=== PATIENT | female | born 1975 | race African-American/Black ===

== ENCOUNTER 2021-09-23 23:56 | Emergency (ER) | payer OTHER ==
[~2021-09-23] VITALS: Ht 170.2 cm; Wt 127.0 kg
[2021-09-23 23:56] VITALS: BP 142/87
== END 2021-09-24 03:29 | disposition left against medical advice (07) ==
LOC: ER 09-24 00:06
DX: S81.812A Laceration without foreign body, left lower leg, initial encounter (principal); Z53.21 Procedure and treatment not carried out due to patient leaving prior to being seen by health care provider; W25.XXXA Contact with sharp glass, initial encounter; Y93.89 Activity, other specified; Y92.89 Other specified places as the place of occurrence of the external cause; Y99.8 Other external cause status

== ENCOUNTER 2023-01-16 18:39 | Emergency (ER) | payer MEDICAID, OTHER ==
[~2023-01-16] VITALS: Ht 170.2 cm; Wt 118.1 kg
[2023-01-16] MEDS ORDERED: ALBUTEROL SULF 2.5 MG/0.5ML(0.5%) NEB SOLN HHN ONE (18:45)
[2023-01-16] MEDS ORDERED: IPRATROPIUM BROM 0.5 MG/2.5ML INH SOL HHN ONE (18:45)
[2023-01-16] MEDS ORDERED: IPRATROPIUM BROM 0.5 MG/2.5ML INH SOL ONE (18:56)
[2023-01-16] MEDS ORDERED: ALBUTEROL SULF 2.5 MG/0.5ML(0.5%) NEB SOLN ONE (18:56)
[2023-01-16 19:19] LABS: Basophils # (auto) 0.1 10 ^3/uL (0-0.2); Monocytes # (auto) 0.6 10 ^3/uL (0-1.3); Nucleated Red Blood Cells % 0.1 %; Red Blood Cells 4.79 10^6/uL (4.0-5.20); Red Cell Distribution Width 18.9 % (11.8-14.3)
[2023-01-16 19:20] LABS: Eosinophils # (auto) 0.2 10 ^3/uL (0-0.8); Eosinophils % (auto) 2.2 % (0.0-7.0); Hematocrit 34.6 % (36.0-46.0); Hemoglobin 10.1 g/dL (12.2-16.2); Lymphocytes # (auto) 1.6 10 ^3/uL (0.4-5.4); Lymphocytes % (auto) 19.6 % (10.0-50.0); Mean Corpuscular Hgb Conc. 29.1 g/dL (32.0-36.0); Mean Corpuscular Volume 72.4 fL (80.0-100.0); Monocytes % (auto) 6.7 % (0.0-12.0); Neutrophils # (auto) 5.8 10 ^3/uL (1.6-8.6); Neutrophils % (auto) 70.5 % (37.0-80.0); White Blood Cell 8.3 10^3/uL (4.4-10.8)
[2023-01-16 19:30] VITALS: PULSE 92; RESP 18; O2SAT 99
[2023-01-16 19:35] LABS: Albumin 3.1 g/dL (3.4-5.0); Calcium 8.5 mg/dL (8.5-10.1); Potassium 3.6 mmol/L (3.5-5.1)
[2023-01-16] MEDS ORDERED: DexAMETHasone SOD PHOS 10MG/1ML VIAL INJ IV ONE (19:45)
[2023-01-16 19:50] LABS: BUN/Creatinine Ratio 11.1 (10.0-20.0); Bilirubin, Total 0.8 mg/dL (0.2-1.0); Total Protein 7.4 g/dL (6.4-8.2)
[2023-01-16 21:17] LABS: COVID19 ANTIGEN SOFIA FIA NEGATIVE (NEGATIVE)
[2023-01-16 21:24] LABS: Urine Bacteria NONE SEEN /hpf (None Seen); Urine Blood Negative /uL (Negative); Urine Clarity Clear (Clear); Urine Color Yellow (Yellow); Urine Protein, UAD TRACE (Negative); Urine Specific Gravity 1.022 (1.001-1.035); Urine WBC 1 /hpf (0 - 5)
[2023-01-17 01:14] VITALS: BP 152/86; PULSE 104; RESP 19; TEMP 99.3; O2SAT 96
== END 2023-01-17 01:55 | disposition short-term general hospital (02) ==
LOC: EDBD 18:39 → ER 18:39
DX: J45.902 Unspecified asthma with status asthmaticus (principal); F17.210 Nicotine dependence, cigarettes, uncomplicated; Z98.890 Other specified postprocedural states; Z20.822 Contact with and (suspected) exposure to COVID-19
CPT/HCPCS: 36415; 71045; 80053; 81001; 83880; 85025; 87426; 93005; 94640; 96374; 99291; J1100; J7644

== ENCOUNTER 2024-11-30 00:45 | Inpatient (IN) | payer MEDICAID ==
[~2024-11-30] VITALS: Ht 170.2 cm; Wt 148.6 kg
[2024-11-30 01:33] LABS: Hematocrit 35.8 % (36.0-46.0); Hemoglobin 10.9 g/dL (12.2-16.2); Mean Corpuscular Hemoglobin 20.6 pg (28.0-32.0); Mean Corpuscular Volume 67.8 fL (80.0-100.0); Nucleated Red Blood Cells % 0.1 %
[2024-11-30 01:40] LABS: Potassium 3.7 mmol/L (3.5-5.1); Sodium 142 mmol/L (136-145)
[2024-11-30 01:41] LABS: Anion Gap 13 (5-15); Calcium 8.8 mg/dL (8.7-10.4); Carbon Dioxide 21 mmol/L (20-31)
--- NOTE | 2024-11-30 01:41 | ED.PDOC ---
GI ASSESSMENT HPI Comments 49 year old female with a history of kidney stones brought in by son complaining of left lower quadrant abdominal pain radiating to left flank since yesterday. Patient states she has been having abdominal pain since yesterday, sharp, stabbing, intermittent left lower quadrant abdominal pain radiating to her left flank and back, associated with nausea and vomiting, She denies any fever, diarrhea, constipation, dysuria or hematuria. 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 History Family History Family History: Reviewed,noncontributory to illness, Family hx of heart marjorie Social History Smoker: Cigarettes Alcohol: Occasionally Drugs: Denies Drug Use Lives In: Home Constitutional: denies: chills, diaphoresis, fatigue, fever, malaise, sweats, weakness, others EENTM: denies: blurred vision, double vision, ear bleeding, ear discharge, ear drainage, ear pain, ear ringing, eye pain, eye redness, hearing loss, mouth pain, mouth swelling, nasal discharge, nose bleeding, nose congestion, nose pain, photophobia, tearing, throat pain, throat swelling, voice changes, others Respiratory: denies: cough, hemoptysis, orthopnea, SOB at rest, shortness of breath, SOB with excertion, stridor, wheezing, others Cardiovascular: denies: chest pain, dizzy spells, diaphoresis, Dyspnea on exertion, edema, irregular heart beat, left arm pain, lightheadedness, palpitations, PND, syncope, others Gastrointestinal: reports: abdominal pain (LLQ), nausea, vomiting; denies: abdomen distended, blood streaked bowels, constipated, diarrhea, dysphagia, difficulty swallowing, hematemesis, melena, poor appetite, poor fluid intake, rectal bleeding, rectal pain, others Genitourinary: denies: abnormal vagina bleeding, burning, dyspareunia, dysuria, flank pain, frequency, hematuria, incontinence, pain, , vagina discharge, urgency, others Neurological: denies: dizziness, fainting, headache, left sided numbness, left sided weakness, numbness, paresthesia, pre-existing deficit, right sided numbness, right sided weakness, seizure, speech problems, tingling, tremors, weakness, others Musculoskeletal: reports: back pain; denies: gout, joint pain, joint swelling, muscle pain, muscle stiffness, neck pain, others Integumetry: denies: bruises, change in color, change in hair/nails, dryness, laceration, lesions, lumps, rash, wounds, others Allergic/Immunocompromised: denies: Difficulty Healing, Frequent Infections, Hives, Itching, others Hematologic/Lymphatic: denies: anemia, blood clots, easy bleeding, easy bruising, swollen glands, others Endocrine: denies: excessive hunger, excessive sweating, excessive thirst, excessive urination, flushing, intolerance to cold, intolerance to heat, unexplained weight gain, unexplained weight loss, others Psychiatric: denies: anxiety, bipolar disorder, depression, hopeless, panic disorder, schizophrenia, sleepless, suicidal, others Physical Exam General Appearance: Mild Distress, Obese HEENT: Other (Pupils and face symmetric. Moist mucous membranes.) Neck: Full Range of Motion, Normal Inspection Respiratory: Lungs Clear, No Accessory Muscle Use, No Respiratory Distress, Normal Breath Sounds Cardiovascular: No Edema, No JVD, Regular Rate/Rhythm Breast Exam: Deferred Gastrointestinal: LLQ, Soft, Tenderness (Left flank and left lower quadrant tenderness to palpation) Genitalia: Deferred Pelvic: Deferred Rectal: Deferred Extremities: Normal inspection, Normal range of motion, Non-tender, No pedal edema Neurologic: Alert (Oriented x4), Normal Affect, Normal Mood, Other (Ambulatory) Cerebellar Function: NOT DONE Reflexes: NOT DONE Skin: Dry, Normal Color, Warm Lymphatic: NOT DONE Was a procedure done? Was a procedure done?: No GI differential Dx Differential Diagnosis: Constipation, Diverticular disease, Ectopic , Gastritis/PUD, Gastroenteritis, Hernia, UTI, Urolithiasis, Dehydration, Electrolyte Imbalance, Food Poisoning, Bacterial, Viral, Hypovolemia, Ischemic Bowel, Stress Ulcer, Kidney Stone X-Ray, Labs, Meds, VS Vital Signs Date Time Temp Pulse Resp B/P (MAP) Pulse Ox O2 Delivery O2 Flow Rate FiO2 11/30/24 01:24 98.7 101 20 127/80 (96) 98 98.7 Lab Test 11/30/24 01:23 Range/Units White Blood Count 10.4 4.4-10.8 10^3/uL Red Blood Count 5.28 H 4.0-5.20 10^6/uL Hemoglobin 10.9 L 12.2-16.2 g/dL Hematocrit 35.8 L 36.0-46.0 % Mean Corpuscular Volume 67.8 L 80.0-100.0 fL Mean Corpuscular Hemoglobin 20.6 L 28.0-32.0 pg Mean Corpuscular Hemoglobin Concent 30.4 L 32.0-36.0 g/dL Red Cell Distribution Width 19.1 H 11.8-14.3 % Platelet Count 305 140-450 10^3/uL Mean Platelet Volume 7.3 6.9-10.8 fL Neutrophils (%) (Auto) 80.5 H 37.0-80.0 % Lymphocytes (%) (Auto) 11.6 10.0-50.0 % Monocytes (%) (Auto) 6.8 0.0-12.0 % Eosinophils (%) (Auto) 0.0 0.0-7.0 % Basophils (%) (Auto) 1.1 0.0-2.0 % Neutrophils # (Auto) 8.4 1.6-8.6 10 ^3/uL Lymphocytes # (Auto) 1.2 0.4-5.4 10 ^3/uL Monocytes # (Auto) 0.7 0-1.3 10 ^3/uL Eosinophils # (Auto) 0 0-0.8 10 ^3/uL Basophils # (Auto) 0.1 0-0.2 10 ^3/uL Nucleated Red Blood Cells 0.1 % Platelet Estimate [place] Large Platelets Few Hypochromasia (manual) Moderate Microcytosis Moderate Sodium Level 142 136-145 mmol/L Potassium Level 3.7 3.5-5.1 mmol/L Chloride Level 108 H 98-107 mmol/L Carbon Dioxide Level 21 20-31 mmol/L Anion Gap 13 5-15 Blood Urea Nitrogen 5 L 9-23 mg/dL Creatinine 0.88 0.550-1.02 mg/dL Glomerular Filtration Rate Calc 82 >90 mL/min BUN/Creatinine Ratio 5.7 L 10.0-20.0 Serum Glucose 90 74-106 mg/dL Calcium Level 8.8 8.7-10.4 mg/dL [facility] [id number] [place] [id number] Ph: [phone] DIAGNOSTIC IMAGING Diagnostic Imaging Report : [id number] Signed PATIENT: MARIAMA DILLON ACCT: [id number] UNIT: [id number] : 1975 LOC: ER ROOM / BED: / AGE / SEX: 49 / F ADM STATUS: REG ER SERVICE 1 ORDERING PHYSICIAN: LEI NEELY MD PROCEDURE(s): ABPL - CT AB PEL WO CON-NO ORAL OR IV REASON: llq pain rad to l flank ORDER NUMBER(s): [id number], ACCESSION NUMBER(s): [id number] Exam: CT CT AB PEL WO CON-NO ORAL OR IV History: llq pain rad to l flank Comparison Study: None Technique: Multidetector spiral CT of the abdomen was performed from lung bases to pubic symphysis. Imaging was performed without IV contrast. Axial, coronal and sagittal multiplanar reformats were obtained from the axial data set by the technologist. Radiation Dose : 1. Abdomen/Pelvis: CTDIvol 25.56 mGy, DLP 1556.06 mGy*cm. Findings: Evaluation of solid organs is limited due to lack of intravenous contrast use. Lung Bases: No acute or significant lung base finding. Normal heart size. No pleural or pericardial effusion. Liver: The liver is normal in size. No focal lesions. Gallbladder and Biliary Tree: Unremarkable Spleen: Unremarkable Pancreas: The pancreas is grossly normal in appearance. Adrenal Glands: Unremarkable Kidneys: Mild left hydronephrosis secondary to a partially obstructing proximal ureteral calculus measuring 6 mm. The right kidney is grossly normal without calculi or hydronephrosis. Bladder: Grossly unremarkable for degree of distention. Bowel: The stomach is grossly normal in appearance. Small bowel and colon are normal in caliber and distribution. The appendix is normal. Ascites: Absent Lymphadenopathy: No mesenteric, retroperitoneal or periportal lymphadenopathy. Abdominal Wall and Mesentery: Small fat containing umbilical hernia. Vasculature: The visualized abdominal aorta is normal in size and caliber. Evaluation of abdominal and pelvic vessels is limited due to lack of intravenous contrast. Pelvic Organs: The uterus is moderately enlarged and lobulated in its morphology, consistent with leiomyomatous change. Musculoskeletal: No aggressive focal bony lesions, acute fractures or dislocation. IMPRESSION: 1. Mild left hydronephrosis secondary to a partially obstructing proximal ureteral calculus. 2. Probable leiomyomatous uterus. Radiation optimization: All CT scans at this facility use at least one of these dose optimization techniques: automated exposure control mA and/or kV adjustment per patient size (includes targeted exams where dose is matched to clinical indication) or iterative reconstruction. ATED BY: DINH SCHMITZ MD DICTATED DATE/TIME: 11/30/24239 SIGNED BY: DINH SCHMITZ MD SIGNED DATE/TIME: 11/30/24239 X-Ray, Labs, Meds, VS Comment 49-year-old female with a history of asthma and kidney stones complaining of left lower quadrant pain radiating to the left flank and back Vitals remarkable for heart rate 101 Exam remarkable for left lower quadrant and left flank tenderness to palpation Rhythm strip independently interpreted by me: Sinus tach, rate 101, no ectopy. CT abdomen and pelvis IMPRESSION: 1. Mild left hydronephrosis secondary to a partially obstructing proximal ureteral calculus. 2. Probable leiomyomatous uterus. CBC and basic metabolic panel unremarkable, UA pending Patient treated with the following in the ED: 1 L 0.9 normal saline IV bolus, Toradol 30 mg IV, Zofran 4 mg IV, magnesium rider 2 g IV On re-evaluation, patient states pain has improved, but is still present.. Vitals are stable. Plan is to admit the patient for pain control and Urology evaluation. Time of 1ST Reevaluation: 01:34 Reevaluation 1ST: Unchanged Patient Education/Counseling: Diagnosis, Treatment Family Education/Counseling: Diagnosis, Treatment SEPSIS Sepsis Screen Physician Orders Urinalysis (11/30/24 01:12) Ct Ab Pel Wo Con-No Oral Or Iv (11/30/24 01:12) Test, Urine (11/30/24 01:12) Magnesium Sulfate 1gm/100ml (11/30/24 02:45) Vital Signs Date Time Temp Pulse Resp B/P (MAP) Pulse Ox O2 Delivery O2 Flow Rate FiO2 11/30/24 01:24 98.7 101 20 127/80 (96) 98 98.7 Laboratory Tests Test 11/30/24 01:23 White Blood Count 10.4 10^3/uL (4.4-10.8) Departure 1 Departure Time of Disposition: 02:50 Impression: Primary Impression: Hydronephrosis concurrent with and due to calculi of kidney and ureter Disposition: ADMITTED INPATIENT Admit to: Med Surg Condition: Guarded Additional Instructions: Your blood tests were unremarkable. Your CT scan showed a kidney stone on the left side. Please see the report below. I have prescribed pain medication and medication for nausea. Follow-up with your primary doctor in 1-2 days for referral to an urologist for further evaluation of your kidney stone. [place] [address] Ph: [phone] DIAGNOSTIC IMAGING Diagnostic Imaging Report : [id number] Signed PATIENT: MARIAMA DILLON ACCT: [id number] UNIT: [id number] : 1975 LOC: ER ROOM / BED: / AGE / SEX: 49 / F ADM STATUS: REG ER SERVICE 011 ORDERING PHYSICIAN: LEI NEELY MD PROCEDURE(s): ABPL - CT AB PEL WO CON-NO ORAL OR IV REASON: llq pain rad to l flank ORDER NUMBER(s): [id number], ACCESSION NUMBER(s): [id number] Exam: CT CT AB PEL WO CON-NO ORAL OR IV History: llq pain rad to l flank Comparison Study: None Technique: Multidetector spiral CT of the abdomen was performed from lung bases to pubic symphysis. Imaging was performed without IV contrast. Axial, coronal and sagittal multiplanar reformats were obtained from the axial data set by the technologist. Radiation Dose : 1. Abdomen/Pelvis: CTDIvol 25.56 mGy, DLP 1556.06 mGy*cm. Findings: Evaluation of solid organs is limited due to lack of intravenous contrast use. Lung Bases: No acute or significant lung base finding. Normal heart size. No pleural or pericardial effusion. Liver: The liver is normal in size. No focal lesions. Gallbladder and Biliary Tree: Unremarkable Spleen: Unremarkable Pancreas: The pancreas is grossly normal in appearance. Adrenal Glands: Unremarkable Kidneys: Mild left hydronephrosis secondary to a partially obstructing proximal ureteral calculus measuring 6 mm. The right kidney is grossly normal without calculi or hydronephrosis. Bladder: Grossly unremarkable for degree of distention. Bowel: The stomach is grossly normal in appearance. Small bowel and colon are normal in caliber and distribution. The appendix is normal. Ascites: Absent Lymphadenopathy: No mesenteric, retroperitoneal or periportal lymphadenopathy. Abdominal Wall and Mesentery: Small fat containing umbilical hernia. Vasculature: The visualized abdominal aorta is normal in size and caliber. Evaluation of abdominal and pelvic vessels is limited due to lack of intravenous contrast. Pelvic Organs: The uterus is moderately enlarged and lobulated in its morphology, consistent with leiomyomatous change. Musculoskeletal: No aggressive focal bony lesions, acute fractures or dislocation. IMPRESSION: 1. Mild left hydronephrosis secondary to a partially obstructing proximal ureteral calculus. 2. Probable leiomyomatous uterus. Radiation optimization: All CT scans at this facility use at least one of these dose optimization techniques: automated exposure control mA and/or kV adjustment per patient size (includes targeted exams where dose is matched to clinical indication) or iterative reconstruction. ATED BY: DINH SCHMITZ MD DICTATED DATE/TIME: 11/30/24239 SIGNED BY: DINH SCHMITZ MD SIGNED DATE/TIME: 11/30/24239 Critical Care Note Critical Care Time?: No Stability Stability form required: No Heart Score Heart Score: Heart Score Response (Comments) Value History N/A 0 EKG N/A 0 Age N/A 0 Risk Factors N/A 0 Troponin N/A 0 Total 0 I personally scribed for LEI NEELY MD ([email or web address]) on 11/30/24 at 01:41. Electronically submitted by Yahir Cheung ([facility] I personally scribed for LEI NEELY MD ([email or web address]) on 11/30/24 at 02:53. Electronically submitted by Yahir Cheung ([facility]). LEI NEELY MD Nov 30, 2024 01:41
[2024-11-30 01:46] LABS: BUN/Creatinine Ratio 5.7 (10.0-20.0); Glucose 90 mg/dL (74-106)
[2024-11-30 02:08] LABS: Blood Urea Nitrogen 5 mg/dL (9-23); Chloride 108 mmol/L (98-107)
--- NOTE | 2024-11-30 02:43 | DVH ---
Exam: CT CT AB PEL WO CON-NO ORAL OR IV History: llq pain rad to l flank Comparison Study: None Technique: Multidetector spiral CT of the abdomen was performed from lung bases to pubic symphysis. I maging was performed without IV contrast. Axial, coronal and sagittal multiplanar reformats were obta ined from the axial data set by the technologist. Radiation Dose : 1. Abdomen/Pelvis: CTDIvol 25.56 mGy, DLP 1556.06 mGy*cm. Findings: Evaluation of solid organs is limited due to lack of intravenous contrast use. Lung Bases: No acute or significant lung base finding. Normal heart size. No pleural or pericardial effusion. Liver: The liver is normal in size. No focal lesions. Gallbladder and Biliary Tree: Unremarkable Spleen: Unremarkable Pancreas: The pancreas is grossly normal in appearance. Adrenal Glands: Unremarkable Kidneys: Mild left hydronephrosis secondary to a partially obstructing proximal ureteral calculus john suring 6 mm. The right kidney is grossly normal without calculi or hydronephrosis. Bladder: Grossly unremarkable for degree of distention. Bowel: The stomach is grossly normal in appearance. Small bowel and colon are normal in caliber and d istribution. The appendix is normal. Ascites: Absent Lymphadenopathy: No mesenteric, retroperitoneal or periportal lymphadenopathy. Abdominal Wall and Mesentery: Small fat containing umbilical hernia. Vasculature: The visualized abdominal aorta is normal in size and caliber. Evaluation of abdominal a nd pelvic vessels is limited due to lack of intravenous contrast. Pelvic Organs: The uterus is moderately enlarged and lobulated in its morphology, consistent with lei omyomatous change. Musculoskeletal: No aggressive focal bony lesions, acute fractures or dislocation. IMPRESSION: 1. Mild left hydronephrosis secondary to a partially obstructing proximal ureteral calculus. 2. Probable leiomyomatous uterus. Radiation optimization: All CT scans at this facility use at least one of these dose optimization rhiannon hniques: automated exposure control mA and/or kV adjustment per patient size (includes targeted exam s where dose is matched to clinical indication) or iterative reconstruction.
[2024-11-30] MEDS: SODIUM CHLORIDE 0.9% 1,000 ML IV ONE (03:16)
[2024-11-30] MEDS: PANTOPRAZOLE 40 MG/10 ML VIAL INJ IV ONE (03:22)
[2024-11-30] MEDS: ONDANSETRON HCL 4 MG/2 ML VIAL IV ONE ×2 (03:22→06:54)
[2024-11-30] MEDS: KETOROLAC TROMETH 30 MG/ML 1ML VIAL IV ONE (03:22)
[2024-11-30] MEDS: MAGNESIUM SULFATE 1GM/100ML 100 ML IV SCH (03:22)
[2024-11-30] MEDS: MORPHINE SULFATE INJ 2 MG/ml SYRG IV ONE (06:53)
[2024-11-30 07:00] LABS: Urine Protein, UAD TRACE (Negative)
--- NOTE | 2024-11-30 08:16 | DVHHP2 ---
History of Present Illness Reason for Visit: Flank pain History of Present Illness 49-year-old female with past medical history of asthma, nephrolithiasis, obesity, and tobacco use, presents to the ED with a chief complaint of left lower quadrant abdominal pain radiating to the left lower flank in across the right lower back, starting yesterday. The pain described as sharp, stabbing, and intermittent rated 7/10, and is associated with nausea and vomiting. She reports similar symptoms in the past, previously diagnosed with kidney stones. Past Medical History As stated in HPI Past Surgical History , tubal ligation Family History Reviewed, non-contributory to the management of this case. Past Social History Admits to tobacco use Denies illicit drug abuse Denies EtOH abuse Review of Systems Constitutional: Yes: Malaise Gastrointestinal: Nausea, Vomiting, Abdominal Pain Genitourinary: Other (Positive for flank and abdominal pain, denies hematuria) Allergies: Coded Allergies: NO KNOWN ALLERGIES (Unverified , 01/16/23) Exam Vital Signs Vital Signs Date Time Temp Pulse Resp B/P (MAP) Pulse Ox O2 Delivery O2 Flow Rate FiO2 11/30/24 06:53 80 18 112/63 11/30/24 01:24 98.7 98 98.7 General Appearance: Alert, Oriented X3, Cooperative, mild distress HEENT: Atraumatic, PERRLA Respiratory: Clear to auscultation, Normal air movement Cardiovascular: Regular rate, Normal S1, Normal S2 Abdominal: Normal bowel sounds, Soft, Other (Soft, mild tenderness to palpation in left lower quadrant and left flank, no rebound or guarding, bowel sounds present.) Extremities: No clubbing, No cyanosis, No edema, Normal pulses Skin: No rashes, No breakdown, No significant lesion Neuro: Normal gait, Normal speech, Strength at 5/5 X4 ext, Normal tone Psych/Mental Status: Mental status NL Labs/Xrays Labs Test 11/30/24 06:00 11/30/24 01:23 Range/Units Urine Color Yellow Yellow Urine Clarity Cloudy H Clear Urine pH 5.5 5.0-9.0 Urine Specific [place] 1.022 1.001-1.035 Urine Protein Trace H Negative Urine Ketones Negative Negative Urine Blood 2+ H Negative /uL Urine Nitrite 2+ H Negative Urine Bilirubin Negative Negative Urine Urobilinogen Normal Negative mg/dL Urine Leukocyte Esterase 1+ Negative /uL Urine RBC 62 0 - 4 /hpf Urine Microscopic WBC 23 H 0-5 /HPF Urine Squamous Epithelial Cells Few <5 /hpf Urine Bacteria Few H None Seen /hpf Urine Mucus Few None Seen Urine Glucose Normal Normal mg/dL Urine Test Negative Negative White Blood Count 10.4 4.4-10.8 10^3/uL Red Blood Count 5.28 H 4.0-5.20 10^6/uL Hemoglobin 10.9 L 12.2-16.2 g/dL Hematocrit 35.8 L 36.0-46.0 % Mean Corpuscular Volume 67.8 L 80.0-100.0 fL Mean Corpuscular Hemoglobin 20.6 L 28.0-32.0 pg Mean Corpuscular Hemoglobin Concent 30.4 L 32.0-36.0 g/dL Red Cell Distribution Width 19.1 H 11.8-14.3 % Platelet Count 305 140-450 10^3/uL Mean Platelet Volume 7.3 6.9-10.8 fL Neutrophils (%) (Auto) 80.5 H 37.0-80.0 % Lymphocytes (%) (Auto) 11.6 10.0-50.0 % Monocytes (%) (Auto) 6.8 0.0-12.0 % Eosinophils (%) (Auto) 0.0 0.0-7.0 % Basophils (%) (Auto) 1.1 0.0-2.0 % Neutrophils # (Auto) 8.4 1.6-8.6 10 ^3/uL Lymphocytes # (Auto) 1.2 0.4-5.4 10 ^3/uL Monocytes # (Auto) 0.7 0-1.3 10 ^3/uL Eosinophils # (Auto) 0 0-0.8 10 ^3/uL Basophils # (Auto) 0.1 0-0.2 10 ^3/uL Nucleated Red Blood Cells 0.1 % Platelet Estimate [place] Large Platelets Few Hypochromasia (manual) Moderate Microcytosis Moderate Sodium Level 142 136-145 mmol/L Potassium Level 3.7 3.5-5.1 mmol/L Chloride Level 108 H 98-107 mmol/L Carbon Dioxide Level 21 20-31 mmol/L Anion Gap 13 5-15 Blood Urea Nitrogen 5 L 9-23 mg/dL Creatinine 0.88 0.550-1.02 mg/dL Glomerular Filtration Rate Calc 82 >90 mL/min BUN/Creatinine Ratio 5.7 L 10.0-20.0 Serum Glucose 90 74-106 mg/dL Calcium Level 8.8 8.7-10.4 mg/dL PROCEDURE(s): ABPL - CT AB PEL WO CON-NO ORAL OR IV REASON: llq pain rad to l flank ORDER NUMBER(s): [id number], ACCESSION NUMBER(s): [id number] Exam: CT CT AB PEL WO CON-NO ORAL OR IV History: llq pain rad to l flank Comparison Study: None Technique: Multidetector spiral CT of the abdomen was performed from lung bases to pubic symphysis. Imaging was performed without IV contrast. Axial, coronal and sagittal multiplanar reformats were obtained from the axial data set by the technologist. Radiation Dose : 1. Abdomen/Pelvis: CTDIvol 25.56 mGy, DLP 1556.06 mGy*cm. Findings: Evaluation of solid organs is limited due to lack of intravenous contrast use. Lung Bases: No acute or significant lung base finding. Normal heart size. No pleural or pericardial effusion. Liver: The liver is normal in size. No focal lesions. Gallbladder and Biliary Tree: Unremarkable Spleen: Unremarkable Pancreas: The pancreas is grossly normal in appearance. Adrenal Glands: Unremarkable Kidneys: Mild left hydronephrosis secondary to a partially obstructing proximal ureteral calculus measuring 6 mm. The right kidney is grossly normal without calculi or hydronephrosis. Bladder: Grossly unremarkable for degree of distention. Bowel: The stomach is grossly normal in appearance. Small bowel and colon are n ormal in caliber and distribution. The appendix is normal. Ascites: Absent Lymphadenopathy: No mesenteric, retroperitoneal or periportal lymphadenopathy. Abdominal Wall and Mesentery: Small fat containing umbilical hernia. Vasculature: The visualized abdominal aorta is normal in size and caliber. Evaluation of abdominal and pelvic vessels is limited due to lack of intravenous contrast. Pelvic Organs: The uterus is moderately enlarged and lobulated in its morphology, consistent with leiomyomatous change. Musculoskeletal: No aggressive focal bony lesions, acute fractures or dislocation. IMPRESSION: 1. Mild left hydronephrosis secondary to a partially obstructing proximal ureteral calculus. 2. Probable leiomyomatous uterus. Assessment/Plan Assessment/Plan # acute cystitis Admit to medical-surgical unit Empiric antibiotic Urine culture # left hydronephrosis secondary to obstructive proximal calculus # history of nephrolithiasis Pain control Tamsulosin Urology consult # nausea and vomiting Antiemetics IV fluid # tobacco use Smoking cessation counseled Nicotine patch # morbid obesity Lifestyle modification counseled with diet, regular exercise and weight loss Medical plan discussed with patient Plan discussed with: Patient My Orders Orders - KANU ESCOBAR [employer]GER Procedure Category Date Status Time Tamsulosin PHA 11/30/24 Transmitted Hydrochloride (Flomax) 18:00 Tamsulosin PHA 11/30/24 Transmitted Hydrochloride (Flomax) 08:00 * Urology Consult CONS 11/30/24 Transmitted 07:51 Admit ADMIT 11/30/24 Transmitted 07:51 Code Status CODE 11/30/24 Transmitted 07:51 0.9% Ns 1000 Ml PHA 11/30/24 Transmitted 08:00 Hydrocodone-Acet PHA 11/30/24 Transmitted 5/325mg Tab ([place] 08:00 Ondansetron Hcl PHA 11/30/24 Transmitted (Zofran) 08:00 Complete Blood Count LAB 12/01/24 Verified 04:00 Comprehensive LAB 12/01/24 Verified Metabolic Panel 04:00 Cardiac DIET 11/30/24 Transmitted Diet-2gna,Lofat,Lochol Breakfast Condition: Fair CHEN 11/30/24 In Process 07:51 Acetaminophen Tablet PHA 11/30/24 Transmitted (Tylenol Tablet) 08:00 Morphine Sulfate PHA 11/30/24 Transmitted Injection 08:00 Strain All Urine For CHEN 11/30/24 In Process Stones 07:51 Date of Service: Nov 30, 2024 Billing Provider: KANU ESCOBAR Common Visit Codes: 19408-[id number] INP/OBS CARE (HIGH) KANU ESCOBAR Nov 30, 2024 08:16
[2024-11-30 09:30] VITALS: BP 120/73; PULSE 83; RESP 18; TEMP 97.8; O2SAT 100
[2024-11-30] MEDS: SODIUM CHLORIDE 0.9% 1,000 ML IV SCH (09:43)
[2024-11-30] MEDS: TAMSULOSIN HYDROCHLORIDE 0.4 MG CAP PO ONE (09:49)
[2024-11-30] MEDS: NICOTINE 7MG/24HR TOPICAL PATCH TD SCH (09:58)
[2024-11-30] MEDS: HYDROcodone-ACET 5/325MG TAB PO PRN (10:13)
--- NOTE | 2024-11-30 11:36 | DVHINCON2 ---
Date of service: Nov 30, 2024 Referring Physician Hospitalist Reason for Consultation 6 mm left proximal ureteral stone with mild left hydronephrosis History of Present Illness 49-year-old female with past medical history of asthma, nephrolithiasis, obesity, and tobacco use, presents to the ED with a chief complaint of left lower quadrant abdominal pain radiating to the left lower flank in across the right lower back, starting yesterday. The pain described as sharp, stabbing, and intermittent rated 7/10, and is associated with nausea and vomiting. She reports similar symptoms in the past, previously diagnosed with kidney stones. CT Scan reported 6 mm left proximal ureteral stone with mild hydronephrosis. Renal function normal. WBC normal. UA clear for infection. Patient is admitted for pain management and expulsive measures. Past Medical History As stated in HPI Past Surgical History , tubal ligation Allergies: Uncoded Allergies: IV contrast (Allergy, Mild, Hives, 11/30/24) Hives Current Medications Current Medications Medications (Trade) Dose Ordered Sig/Alfie Route PRN Reason Start Time Stop Time Status Last Admin Magnesium Sulfate/ Dextrose 100 ml @ 100 mls/hr Q1H IV 11/30/24 02:45 11/30/24 04:44 DC 11/30/24 05:06 Tamsulosin HCl (Flomax) 0.4 mg QPM PO 11/30/24 18:00 Sodium Chloride 1,000 ml @ 100 mls/hr Q10H IV 11/30/24 08:00 11/30/24 09:43 Acetaminophen/ Hydrocodone Bitart (Rufus 5/325MG Tab) 1 tab Q4HP PRN PO MODERATE PAIN (4-6 PAIN SCALE) 11/30/24 08:00 11/30/24 10:13 Ondansetron HCl (Zofran) 4 mg Q4HP PRN IV NAUSEA / VOMITING 11/30/24 08:00 Acetaminophen (Tylenol Tablet) 650 mg Q6HP PRN PO PAIN SCALE 1-3 OR TEMP>100.4 11/30/24 08:00 Morphine Sulfate 2 mg Q4HPRN PRN IV SEVERE PAIN (7-10 PAIN SCALE) 11/30/24 08:00 Nicotine (Nicoderm 7MG/ 24HR) 1 patch DAILY TD 11/30/24 10:00 Review of Systems Constitutional: Yes: Malaise Gastrointestinal: Nausea, Vomiting, Abdominal Pain Genitourinary: Other (Positive for flank and abdominal pain, denies hematuria) Allergies: Coded Allergies: NO KNOWN ALLERGIES (Unverified , 01/16/23) Vital Signs Vital Signs Date Time Temp Pulse Resp B/P (MAP) Pulse Ox O2 Delivery O2 Flow Rate FiO2 11/30/24 09:30 97.8 83 18 120/73 (89) 100 97.8 Physical Exam Vital Signs Date Time Temp Pulse Resp B/P (MAP) Pulse Ox O2 Delivery O2 Flow Rate FiO2 11/30/24 06:53 80 18 112/63 11/30/24 01:24 98.7 98 98.7 General Appearance: Alert, Oriented X3, Cooperative, mild distress HEENT: Atraumatic, PERRLA Respiratory: Clear to auscultation, Normal air movement Cardiovascular: Regular rate, Normal S1, Normal S2 Abdominal: Normal bowel sounds, Soft, Other (Soft, mild tenderness to palpation in left lower quadrant and left flank, no rebound or guarding, bowel sounds present.) Extremities: No clubbing, No cyanosis, No edema, Normal pulses Skin: No rashes, No breakdown, No significant lesion Neuro: Normal gait, Normal speech, Strength at 5/5 X4 ext, Normal tone Psych/Mental Status: Mental status NL Labs/Diagnostic Data Labs Test 11/30/24 06:00 11/30/24 01:23 Range/Units Urine Color Yellow Yellow Urine Clarity Cloudy H Clear Urine pH 5.5 5.0-9.0 Urine Specific [place] 1.022 1.001-1.035 Urine Protein Trace H Negative Urine Ketones Negative Negative Urine Blood 2+ H Negative /uL Urine Nitrite 2+ H Negative Urine Bilirubin Negative Negative Urine Urobilinogen Normal Negative mg/dL Urine Leukocyte Esterase 1+ Negative /uL Urine RBC 62 0 - 4 /hpf Urine Microscopic WBC 23 H 0-5 /HPF Urine Squamous Epithelial Cells Few <5 /hpf Urine Bacteria Few H None Seen /hpf Urine Mucus Few None Seen Urine Glucose Normal Normal mg/dL Urine Test Negative Negative White Blood Count 10.4 4.4-10.8 10^3/uL Red Blood Count 5.28 H 4.0-5.20 10^6/uL Hemoglobin 10.9 L 12.2-16.2 g/dL Hematocrit 35.8 L 36.0-46.0 % Mean Corpuscular Volume 67.8 L 80.0-100.0 fL Mean Corpuscular Hemoglobin 20.6 L 28.0-32.0 pg Mean Corpuscular Hemoglobin Concent 30.4 L 32.0-36.0 g/dL Red Cell Distribution Width 19.1 H 11.8-14.3 % Platelet Count 305 140-450 10^3/uL Mean Platelet Volume 7.3 6.9-10.8 fL Neutrophils (%) (Auto) 80.5 H 37.0-80.0 % Lymphocytes (%) (Auto) 11.6 10.0-50.0 % Monocytes (%) (Auto) 6.8 0.0-12.0 % Eosinophils (%) (Auto) 0.0 0.0-7.0 % Basophils (%) (Auto) 1.1 0.0-2.0 % Neutrophils # (Auto) 8.4 1.6-8.6 10 ^3/uL Lymphocytes # (Auto) 1.2 0.4-5.4 10 ^3/uL Monocytes # (Auto) 0.7 0-1.3 10 ^3/uL Eosinophils # (Auto) 0 0-0.8 10 ^3/uL Basophils # (Auto) 0.1 0-0.2 10 ^3/uL Nucleated Red Blood Cells 0.1 % Platelet Estimate [place] Large Platelets Few Hypochromasia (manual) Moderate Microcytosis Moderate Sodium Level 142 136-145 mmol/L Potassium Level 3.7 3.5-5.1 mmol/L Chloride Level 108 H 98-107 mmol/L Carbon Dioxide Level 21 20-31 mmol/L Anion Gap 13 5-15 Blood Urea Nitrogen 5 L 9-23 mg/dL Creatinine 0.88 0.550-1.02 mg/dL Glomerular Filtration Rate Calc 82 >90 mL/min BUN/Creatinine Ratio 5.7 L 10.0-20.0 Serum Glucose 90 74-106 mg/dL Calcium Level 8.8 8.7-10.4 mg/dL Assessment Left ureteral stone, 6 mm Mild left hydronephrosis Left abdominal pain Plan/Recommendation Expulsive measures and pain management Outpatient vs. inpatient lithotripsy (possible Sunday12/02/24.) Plan discussed with: Patient, Other MALIK HSU MD Nov 30, 2024 11:36
[2024-11-30] MEDS: MORPHINE SULFATE INJ 2 MG/ml SYRG IV PRN (12:02)
[2024-11-30] MEDS: MANNITOL FTV 25% 12.5 GM/50 ML 50 ML IV ONE (13:11)
[2024-11-30 14:31] VITALS: BP 109/67; PULSE 68; RESP 17; TEMP 98; O2SAT 95
[2024-11-30] MEDS: ONDANSETRON HCL 4 MG/2 ML VIAL IV PRN (14:50)
[2024-11-30] MEDS: TAMSULOSIN HYDROCHLORIDE 0.4 MG CAP PO SCH (17:48)
[2024-11-30 18:10] VITALS: BP 136/77; PULSE 99; RESP 17; RESP 18; TEMP 100; O2SAT 99
[2024-11-30] MEDS: ACETAMINOPHEN 325 MG TAB PO PRN (18:39)
[2024-11-30 19:53] VITALS: PULSE 87; RESP 18; O2SAT 97
[2024-11-30 21:00] VITALS: BP 106/61; PULSE 88; RESP 17; TEMP 99.4; O2SAT 98
[2024-11-30] MEDS: PHENAZOPYRIDINE HCL 100 MG TAB PO SCH (21:59)
[2024-12-01] VITALS (9 sets, daily range): BP systolic 95–156; BP diastolic 50–89; PULSE 75–103; RESP 17–20; TEMP 98–101.5; O2SAT 95–99
[2024-12-01 06:34] LABS: Mean Corpuscular Hemoglobin 20.7 pg (28.0-32.0)
[2024-12-01 06:38] LABS: Hematocrit 30.1 % (36.0-46.0); Hemoglobin 8.9 g/dL (12.2-16.2); Mean Corpuscular Volume 70.1 fL (80.0-100.0); Nucleated Red Blood Cells % 0.0 %
[2024-12-01 06:55] LABS: Alanine Aminotransferase 11 U/L (7-40); Albumin 3.7 g/dL (3.2-4.8); Alkaline Phosphatase 53 U/L (46-116); Anion Gap 8 (5-15); BUN/Creatinine Ratio 9.5 (10.0-20.0); Carbon Dioxide 23 mmol/L (20-31); Glucose 101 mg/dL (74-106); Potassium 4.0 mmol/L (3.5-5.1); Sodium 138 mmol/L (136-145); Total Protein 6.3 g/dL (5.7-8.2)
[2024-12-01 06:56] LABS: Bilirubin, Total 1.2 mg/dL (0.2-1.0); Blood Urea Nitrogen 9 mg/dL (9-23); Calcium 8.2 mg/dL (8.7-10.4); Chloride 107 mmol/L (98-107)
--- NOTE | 2024-12-01 09:20 | DVH ---
Date: 12/01/2024 08:43 AM Examination: XY KUB ABDOMEN SINGLE VIEW History: left ureteral stone Comparison: None TECHNIQUE: Frontal views of the abdomen was obtained. FINDINGS: Bowel gas pattern is unremarkable. Moderate stool burden. The lung bases are unremarkable. No acute osseous abnormality identified. IMPRESSION: Nonobstructive bowel gas pattern. Renal stones better visualized on prior CT. Moderate stool burden.
[2024-12-01] MEDS: cefTRIAXone 1GM/50ML D5W 50 ML IV SCH (10:01)
[2024-12-01 11:12] LABS: Magnesium 1.7 mg/dL (1.6-2.6)
[2024-12-01] MEDS: LACTULOSE 20Gm/30ML SOLN PO ONE (11:32)
[2024-12-01] MEDS: ENOXAPARIN SOD 40 MG/0.4 ML SYRINGE SC ONE (11:32)
[2024-12-01 12:07] LABS: INR 1.07 (0.9-1.15); Partial Thromboplastin Time 27.6 SEC (24.5-34.5); Prothrombin Time 11.3 sec (9.3-11.8)
--- NOTE | 2024-12-01 12:51 | DVHPNRES ---
Progress Note Date Seen: Dec 01, 2024 Resident Creating Document: SHARMILA MARCUM RESIDENT Medical Necessity Reason Pt with a Central, PICC or Fol: No Subjective Review of Systems Mariann Nash Is a 49-year-old female with past medical history of asthma, nephrolithiasis, obesity and tobacco use presents to the ED with a chief complaint of left lower quadrant abdominal pain since Sunday. the patient reported the pain to start at the left lower quadrant on Sunday when she was taking rest , the pain is constant and it was sudden onset, rates the pain a 10/10, associated with nausea and vomiting, radaiting to left flank and pain is improved after doing back massage. patient also reported associated urinary frequency urgency and burning sensation during micturition. Patient also reported having occasional fever. Eventually the pain did not improve which prompted her to visit the ER. also patient's gives history of previous nephrolithiasis which improved without any intervention. On my assessment today the patient denies any shortness of breath, chest pain, diarrhea, constipation, fever or other associated symptoms PMH: Asthma, nephrolithiasis, obesity PSH: Multiple sections, tubal ligation Family history: reviewed noncontributory to the management of this case Social history: Lives at home with family.She smokes for the previous 20 years 6 cigarettes per day and and willing to quit soon, occasional alcohol use and started taking marijuana recently for pain but denies other drug abuse. Allergies: Contrast allergies Home medications: Occasionally taking senna ROS: The patient was seen and examined at the bedside. overnight events were reviewed, no new complaints reported except existing abdominal pain which has improved since admission. Patient reported no fever, no nausea and vomiting. Rest of the ROS is negative. Patient reports: No new complaints, Feels better Objective vital signs Vital Sign Date Time Temp Pulse Resp B/P (MAP) Pulse Ox O2 Delivery O2 Flow Rate FiO2 12/01/24 09:03 82 16 116/61 12/01/24 09:00 98.6 96 98.6 12/01/24 08:00 Room Air* 0 21 Total Intake and Output 11/30/24 11/30/24 12/01/24 15:00 23:00 07:00 Intake Total 1800 ml Balance 1800 ml medications Current Medications Medications Dose Ordered Sig/Alfie Route Start Time Stop Time Status Last Admin Dose Admin Tamsulosin HCl 0.4 mg QPM PO 11/30/24 18:00 11/30/24 17:48 0.4 MG Sodium Chloride 1,000 ml @ 100 mls/hr Q10H IV 11/30/24 08:00 12/01/24 02:32 100 MLS/HR Acetaminophen/ Hydrocodone Bitart 1 tab Q4HP PRN PO 11/30/24 08:00 12/01/24 11:33 1 TAB Ondansetron HCl 4 mg Q4HP PRN IV 11/30/24 08:00 12/01/24 08:32 4 MG Acetaminophen 650 mg Q6HP PRN PO 11/30/24 08:00 11/30/24 18:39 650 MG Morphine Sulfate 2 mg Q4HPRN PRN IV 11/30/24 08:00 12/01/24 08:33 2 MG Nicotine 1 patch DAILY TD 11/30/24 10:00 Ceftriaxone Sodium 50 ml @ 100 mls/hr DAILY@09 IV 12/01/24 09:00 12/01/24 10:01 100 MLS/HR Phenazopyridine HCl 100 mg Q8HR PO 11/30/24 22:00 12/01/24 11:32 100 MG Enoxaparin Sodium 40 mg DAILY SC 12/02/24 10:00 Examination Pt is lying on bed General Appearance: Alert, Oriented X3, Cooperative, Mild distress HEENT: Atraumatic, Mucous membranes moist/pink Respiratory: Clear to auscultation, Normal air movement, No added sounds Cardiovascular: Regular rate, Normal S1, Normal S2, No murmurs Abdominal/ : Active bowel sounds, Soft, no distention, but tenderness on suprapubic and left lower quadrant and left costovertebral tenderness was present Extremities: No edema, Normal pulses, No tenderness/swelling Skin: No Significant rash, except past surgical scars Neuro: Normal speech, sensorimotor deficits none Psych/Mental Status: Mental status NL, Mood NL Nurse was there as echo technologist during examination laboratory and microbiology Laboratory Tests 12/01/24 05:56 Test 12/01/24 05:56 Range/Units Serum Glucose 101 74-106 mg/dL Labs and/or images reviewed: Labs reviewed by me, Image(s) reviewed by me Problem List/Assessment/Plan Problem List/Assessment/Plan # ? Sepsis likely due to UTI # ? Acute Pyelonephritis # Acute complicated UTI / cystitis # Left Nephro-ureteral lithiasis # Mild left hydronephrosis probably secondary to above - Evident on UA - CT abdomen pelvis showed mild left hydronephrosis secondary to a partially obstructing proximal ureteral calculus - KUB showed nonobstructive bowel gas pattern. Renal stones better visualized on prior CT. Moderate stool burden. - started on Rocephin and IVF 100ml/hr - Urinary and blood culture ordered, pending results - Tamsulosin, straining of urine and urology consult for calculi - urology consult seen the patient and advised Expulsive measures and Outpatient vs. inpatient lithotripsy (possible Sunday12/02/24.) - Pain management with [place], phenazopyridine and morphine. - antiemetics Zofran, as needed - low-salt diet # Morbid obesity with BMI 49.7 kg per m2 - counseled regarding healthy lifestyle modifications including diet and exercise - dietary consult # leiomyomatous uterus - evident on CT - Outpatient follow-up OBGYN # Constipation - lactulose 30 mL b.i.d. # Vitamin B12 deficiency - repleting with 1000mcg IM # vitamin-D deficiency [place] [address]53 units once weekly # mild transaminitis - monitoring lab # Tobacco abuse disorder/dependence - counseled regarding cessation for more than 17 minutes - willing to quit, provided resources - offered nicotine patch # Marijuana abuse disorder - counseled regarding cessation for more than 17 minutes GI prophylaxis: Not indicated DVT prophylaxis: Lovenox 40 mg sq Diet: NPO after midnidgt Goals of care discussed with the patient for more than 27 minutes: Full code status Case discussed with Dr. Delacruz, patient and RN Plan discussed with: Patient, Other (RN) My Orders My Orders Orders - SHARMILA MARCUM RESIDENT Procedure Category Date Status Time Urine Bacterial RITO 12/01/24 Uncollected Culture 08:27 Blood Culture RITO 12/01/24 Uncollected 08:27 Date of Service: Dec 01, 2024 Billing Provider: MARTINA DELACRUZ MD Common Visit Codes: [id number] INP/OBS CARE(HIGH) SHARMILA MARCUM RESIDENT Dec 01, 2024 12:51 MARTINA DELACRUZ MD Dec 01, 2024 21:26
[2024-12-01] MEDS: CYANOCOBALAMIN (B-12) 1000 MCG/1 ML VIAL IM ONE (16:24)
[2024-12-01] MEDS: ERGOCALCIFEROL 50,000 UNIT(1.25MG) CAP PO SCH (16:25)
[2024-12-01] MEDS: LACTULOSE 20Gm/30ML SOLN PO SCH (22:18)
[2024-12-02] VITALS (7 sets, daily range): BP systolic 109–134; BP diastolic 59–74; PULSE 95–136; RESP 13–20; TEMP 98.5–101.6; O2SAT 95–100
[2024-12-02 06:32] LABS: Mean Corpuscular Hemoglobin 20.7 pg (28.0-32.0)
[2024-12-02 06:37] LABS: Hematocrit 31.1 % (36.0-46.0); Hemoglobin 9.2 g/dL (12.2-16.2); Mean Corpuscular Volume 69.6 fL (80.0-100.0)
[2024-12-02 06:50] LABS: Alanine Aminotransferase 11 U/L (7-40); Alkaline Phosphatase 61 U/L (46-116); BUN/Creatinine Ratio 4.6 (10.0-20.0); Chloride 104 mmol/L (98-107); Magnesium 1.6 mg/dL (1.6-2.6); Sodium 137 mmol/L (136-145); Total Protein 6.9 g/dL (5.7-8.2)
[2024-12-02 06:51] LABS: Albumin 3.9 g/dL (3.2-4.8)
[2024-12-02 06:56] LABS: Bilirubin, Total 2.3 mg/dL (0.2-1.0); Blood Urea Nitrogen 5 mg/dL (9-23); Calcium 8.6 mg/dL (8.7-10.4); Glucose 107 mg/dL (74-106); Potassium 3.4 mmol/L (3.5-5.1)
[2024-12-02 06:59] LABS: Anion Gap 10 (5-15); Carbon Dioxide 23 mmol/L (20-31)
[2024-12-02 09:54] LABS: Amphetamine Screen, Urine Neg (NEGATIVE); Barbiturate Scree,Urine Neg (NEGATIVE); Benzodiazephine Screen, Urine Neg (NEGATIVE); Cannabinoid Screen, Urine Pos (NEGATIVE); Cocaine Screen, Urine Neg (NEGATIVE); Opiate Scree,Urine Pos (NEGATIVE); Phencyclidine Screen, Urine Neg (NEGATIVE)
[2024-12-02] MEDS: ENOXAPARIN SOD 40 MG/0.4 ML SYRINGE SC SCH (10:00)
[2024-12-02] MEDS: METOCLOPRAMIDE HCL 5MG/ml INJ 2ml VIAL IV ONE ×2 (10:00→15:36)
[2024-12-02 10:23] LABS: Total Iron Binding Capacity 364.0 ug/dL (250-425)
[2024-12-02 10:24] LABS: Iron 16.0 ug/dL (50-170)
[2024-12-02 10:51] LABS: Total Cells Counted 100.0 (100)
[2024-12-02] MEDS: SODIUM CHLORIDE 0.9% 500 ML IV ONE (11:44)
[2024-12-02] MEDS ORDERED: PROPOFOL 10 MG/ML 20 ML IV ONE (12:46)
[2024-12-02] MEDS ORDERED: MIDAZOLAM HCL 2MG/2ML 2ml VIAL (1mg/ml) ONE (12:46)
[2024-12-02] MEDS ORDERED: fentaNYL CITRATE 100 MCG/2 ML VL ONE (12:46)
--- NOTE | 2024-12-02 13:02 | DVHPNRES ---
Progress Note Date Seen: Dec 02, 2024 Resident Creating Document: SHARMILA MARCUM RESIDENT Medical Necessity Reason Pt with a Central, PICC or Fol: No Subjective Review of Systems Mariann Nash Is a 49-year-old female with past medical history of asthma, nephrolithiasis, obesity and tobacco use presents to the ED with a chief complaint of left lower quadrant abdominal pain since Sunday. the patient reported the pain to start at the left lower quadrant on Sunday when she was taking rest , the pain is constant and it was sudden onset, rates the pain a 10/10, associated with nausea and vomiting, radaiting to left flank and pain is improved after doing back massage. patient also reported associated urinary frequency urgency and burning sensation during micturition. Patient also reported having occasional fever. Eventually the pain did not improve which prompted her to visit the ER. also patient's gives history of previous nephrolithiasis which improved without any intervention. On my assessment today the patient denies any shortness of breath, chest pain, diarrhea, constipation, fever or other associated symptoms PMH: Asthma, nephrolithiasis, obesity PSH: Multiple sections, tubal ligation Family history: reviewed noncontributory to the management of this case Social history: Lives at home with family.She smokes for the previous 20 years 6 cigarettes per day and and willing to quit soon, occasional alcohol use and started taking marijuana recently for pain but denies other drug abuse. Allergies: Contrast allergies Home medications: Occasionally taking senna 12/02 - Interval events The patient had a fever overnight ranging from 100-101.6 degree F. in the morning vital signs were stable blood culture was ordered and communicated with the nurse. The patient reports having stabbing flank pain rating 8/10 the pain is constant radiating to the lower pelvis. Patient denies any urinary symptoms chest pain, shortness of breath or any other symptoms. The patient complained of having nausea, she was given metoclopramide for this reason. Her constipation did not resolve with lactulose and so we ordered dulcolax and enema. The patient reports having heavy menstruation. Objective vital signs Vital Sign Date Time Temp Pulse Resp B/P (MAP) Pulse Ox O2 Delivery O2 Flow Rate FiO2 12/02/24 11:06 127 16 148/73 12/02/24 08:00 98 Room Air* 0 21 12/02/24 05:00 98.5 98.5 Total Intake and Output 12/01/24 12/01/24 12/02/24 15:00 23:00 07:00 Intake Total 520 ml 1350 ml Output Total 1500 ml Balance -980 ml 1350 ml medications Current Medications Medications Dose Ordered Sig/Alfie Route Start Time Stop Time Status Last Admin Dose Admin Tamsulosin HCl 0.4 mg QPM PO 11/30/24 18:00 12/01/24 17:34 0.4 MG Sodium Chloride 1,000 ml @ 100 mls/hr Q10H IV 11/30/24 08:00 12/02/24 00:33 100 MLS/HR Acetaminophen/ Hydrocodone Bitart 1 tab Q4HP PRN PO 11/30/24 08:00 12/02/24 00:52 1 TAB Ondansetron HCl 4 mg Q4HP PRN IV 11/30/24 08:00 12/02/24 11:00 4 MG Acetaminophen 650 mg Q6HP PRN PO 11/30/24 08:00 12/01/24 20:44 650 MG Morphine Sulfate 2 mg Q4HPRN PRN IV 11/30/24 08:00 12/02/24 11:06 2 MG Nicotine 1 patch DAILY TD 11/30/24 10:00 Ceftriaxone Sodium 50 ml @ 100 mls/hr DAILY@09 IV 12/01/24 09:00 12/02/24 08:34 100 MLS/HR Phenazopyridine HCl 100 mg Q8HR PO 11/30/24 22:00 12/01/24 22:18 100 MG Enoxaparin Sodium 40 mg DAILY SC 12/02/24 10:00 Lactulose 30 ml BID PO 12/01/24 22:00 12/01/24 22:18 30 ML Ergocalciferol 50,000 unit Q7D PO 12/01/24 13:45 12/01/24 16:25 50,000 UNIT Metoclopramide HCl 5 mg Q8HR IV 12/02/24 14:00 Examination Pt is lying on bed General Appearance: Alert, Oriented X3, Cooperative, Mild distress HEENT: Atraumatic, Mucous membranes moist/pink Respiratory: Clear to auscultation, Normal air movement, No added sounds Cardiovascular: Regular rate, Normal S1, Normal S2, No murmurs Abdominal/ : Active bowel sounds, Soft, no distention, but tenderness on suprapubic and left lower quadrant and left costovertebral tenderness was present Extremities: No edema, Normal pulses, No tenderness/swelling Skin: No Significant rash, except past surgical scars Neuro: Normal speech, sensorimotor deficits none Psych/Mental Status: Mental status NL, Mood NL Nurse was there as button maker and installer during examination laboratory and microbiology Laboratory Tests 12/02/24 05:48 Test 12/02/24 05:48 Range/Units Serum Glucose 107 H 74-106 mg/dL Labs and/or images reviewed: Labs reviewed by me, Image(s) reviewed by me Problem List/Assessment/Plan Problem List/Assessment/Plan # ? Sepsis likely due to UTI # ? Acute Pyelonephritis # Acute complicated UTI / cystitis # Left Nephro-ureteral lithiasis # Mild left hydronephrosis probably secondary to above - Evident on UA - CT abdomen pelvis showed mild left hydronephrosis secondary to a partially obstructing proximal ureteral calculus - KUB showed nonobstructive bowel gas pattern. Renal stones better visualized on prior CT. Moderate stool burden. - started on Rocephin and IVF 100ml/hr - Urinary and blood culture ordered, pending results - Tamsulosin, straining of urine and urology consult for calculi - urology consult seen the patient and scheduled inpatient lithotripsy today. - Pain management with [place], phenazopyridine and morphine. - antiemetics Zofran, as needed - low-salt diet # Morbid obesity with BMI 49.7 kg per m2 - counseled regarding healthy lifestyle modifications including diet and exercise - dietary consult # Microcytic hypochromic Anemia -Iron profile sent. -Ferrous sulfate PO # leiomyomatous uterus - evident on CT - Outpatient follow-up OBGYN # Constipation - lactulose 30 mL b.i.d. - Dulcolax started. # Vitamin B12 deficiency - repleting with 1000mcg IM # vitamin-[place] [address] units once weekly # mild transaminitis - monitoring lab # Tobacco abuse disorder/dependence - counseled regarding cessation for more than 17 minutes - willing to quit, provided resources - offered nicotine patch # Marijuana abuse disorder - counseled regarding cessation for more than 17 minutes GI prophylaxis: Not indicated DVT prophylaxis: Lovenox 40 mg sq Diet: NPO after midnidgt Goals of care discussed with the patient for more than 27 minutes: Full code status Case discussed with Dr. Delacruz, patient and RN Plan discussed with: Patient, Other (RN) My Orders My Orders Orders - SHARMILA MARCUM RESIDENT Procedure Category Date Status Time Urine Bacterial RITO 12/01/24 In Process Culture 08:27 Blood Culture RITO 12/01/24 In Process 08:27 Lactulose Oral PHA 12/01/24 In Process 22:00 Ergocalciferol PHA 12/01/24 In Process (Vitamin D 50,000 13:45 Communication Order ORDERS 12/02/24 Transmitted 09:46 Date of Service: Dec 02, 2024 Billing Provider: MARTINA DELACRUZ MD Common Visit Codes: [id number] INP/OBS CARE(HIGH) SHARMILA MARCUM RESIDENT Dec 02, 2024 13:02 MARTINA DELACRUZ MD Dec 03, 2024 21:46
[2024-12-02] MEDS: IOHEXOL 300 MG/ML 100ML BOTTLE IJ ONE (13:15)
[2024-12-02] MEDS: ONDANSETRON HCL 4 MG/2 ML VIAL IV ONE (14:00)
[2024-12-02] MEDS: METOCLOPRAMIDE HCL 5MG/ml INJ 2ml VIAL IV SCH (14:00)
[2024-12-02] MEDS: HYDROmorphone HCL 2 MG/ML VL/or syr IV PRN (14:20)
--- NOTE | 2024-12-02 14:47 | DVHNC2 ---
Procedure - OPERATIVE REPORT Pre-op. Diagnosis: left proximal ureteral calculus 6 mm Post-op. Diagnosis: Same as pre-op diagnosis Operation: Extracorporeal Shockwave Lithotripsy cystoscopy with left retrograde pyelogram Anesthesia: General Indications: Patient was found to have symptomatic Urolithiasis. Patient is here to undergo ESWL therapy. Informed Consent: The procedure was explained to the patient. It's risks include but not limited to infection, bleeding, and damage to the kidney. Patient fully understood and signed the consent. Other options such as watchful waiting, Ureteroscopy, Percutaneous surgery and open surgery were also discussed. Details of Procedure: Under satisfactory anesthesia, the patient was positioned on the lithotripsy table in the lithotomy position. Area of the genitalia was prepped and draped in usual sterile manner. Twenty-one [place] rigid cystoscope was used to inspect the urethra in the bladder. The left ureteric orifice was cannulated with six [place] open-ended catheter which was advanced to the point of the stone in the proximal ureter. The stone was located right at the bifurcation of the ureters of the duplicated system. The catheter was maintained in position and the cystoscope was removed. [place] catheter was inserted. Patient was then repositioned on the lithotripsy table. Using fluoroscopy the stone was localized. Starting at low energy levels, shockwave treatment was commenced. The energy level was gradually increased and stone was fragmented. Once the treatment was completed, patient was then taken off the lithotripsy table and sent to recovery room in stable condition. Specimens: None Complications: None Findings: Stone Laterality: Left Stone Location: proximal ureteral 6 mm stone Shocks Delivered: 2400 [employer] Power settin Fragmentation Quality: MALIK Pa MD Dec 02, 2024 14:47
[2024-12-02] MEDS: POTASSIUM CHL 20 Meq TABLET PO ONE (15:39)
[2024-12-02] MEDS: BISACODYL 5 MG EC TAB PO ONE (15:40)
[2024-12-03] VITALS (8 sets, daily range): BP systolic 110–140; BP diastolic 55–93; PULSE 86–90; RESP 18–20; TEMP 97.5–99.3; O2SAT 93–98
[2024-12-03 06:02] LABS: Hematocrit 26.6 % (36.0-46.0); Hemoglobin 7.9 g/dL (12.2-16.2); Mean Corpuscular Hemoglobin 20.8 pg (28.0-32.0); Mean Corpuscular Volume 69.8 fL (80.0-100.0); Nucleated Red Blood Cells % 0.0 %
[2024-12-03 06:08] LABS: Alanine Aminotransferase 11 U/L (7-40); Albumin 3.4 g/dL (3.2-4.8); Alkaline Phosphatase 49 U/L (46-116); Anion Gap 7 (5-15); BUN/Creatinine Ratio 6.9 (10.0-20.0); Carbon Dioxide 25 mmol/L (20-31); Glucose 95 mg/dL (74-106); Magnesium 1.7 mg/dL (1.6-2.6); Potassium 3.7 mmol/L (3.5-5.1); Sodium 139 mmol/L (136-145); Total Protein 5.9 g/dL (5.7-8.2)
[2024-12-03 06:20] LABS: Bilirubin, Total 1.6 mg/dL (0.2-1.0); Blood Urea Nitrogen 7 mg/dL (9-23); Calcium 7.8 mg/dL (8.7-10.4); Chloride 107 mmol/L (98-107)
[2024-12-03] MEDS: FERROUS SULFATE 325mg EC TAB PO ONE (09:19)
[2024-12-03] MEDS ORDERED: LACTULOSE 20Gm/30ML SOLN PO PRN (13:45)
[2024-12-03] MEDS: levoFLOXacin 250 MG TAB PO SCH (14:15)
--- NOTE | 2024-12-03 15:12 | DVHPNRES ---
Progress Note Date Seen: Dec 03, 2024 Resident Creating Document: SHARMILA MARCUM RESIDENT Medical Necessity Reason Pt with a Central, PICC or Fol: No Subjective Review of Systems Review of Systems Mariann Nash Is a 49-year-old female with past medical history of asthma, nephrolithiasis, obesity and tobacco use presents to the ED with a chief complaint of left lower quadrant abdominal pain since Sunday. the patient reported the pain to start at the left lower quadrant on Sunday when she was taking rest , the pain is constant and it was sudden onset, rates the pain a 10/10, associated with nausea and vomiting, radaiting to left flank and pain is improved after doing back massage. patient also reported associated urinary frequency urgency and burning sensation during micturition. Patient also reported having occasional fever. Eventually the pain did not improve which prompted her to visit the ER. also patient's gives history of previous nephrolithiasis which improved without any intervention. On my assessment today the patient denies any shortness of breath, chest pain, diarrhea, constipation, fever or other associated symptoms PMH: Asthma, nephrolithiasis, obesity PSH: Multiple sections, tubal ligation Family history: reviewed noncontributory to the management of this case Social history: Lives at home with family.She smokes for the previous 20 years 6 cigarettes per day and and willing to quit soon, occasional alcohol use and started taking marijuana recently for pain but denies other drug abuse. Allergies: Contrast allergies Home medications: Occasionally taking senna 12/03 - Interval events Patient seen and examined at the bedside. Overnight events reviewed. No fever reported at night. The patient is status post extracorporeal shockwave lithotripsy, she rates of flank pain 6/10. However she reports the pain has improved since yesterday(after ESWL). Her pain is being managed with morphine. She was able to have a bowel movement after using lactulose. The patient reports having chills and nausea when she receives Rocephin. So she started on Levaquin instead of Rocephin. She has no SOB, chest pain, fever or any other complaints at this time. Objective vital signs Vital Sign Date Time Temp Pulse Resp B/P (MAP) Pulse Ox O2 Delivery O2 Flow Rate FiO2 12/03/24 13:00 98.2 86 20 110/55 (73) 93 98.2 12/03/24 08:00 Room Air* 0 21 Total Intake and Output 12/02/24 12/02/24 12/03/24 15:00 23:00 07:00 Intake Total 10 ml 220 ml 950 ml Output Total 1200 ml Balance 10 ml 220 ml -250 ml medications Current Medications Medications Dose Ordered Sig/Alfie Route Start Time Stop Time Status Last Admin Dose Admin Tamsulosin HCl 0.4 mg QPM PO 11/30/24 18:00 12/02/24 18:55 0.4 MG Acetaminophen/ Hydrocodone Bitart 1 tab Q4HP PRN PO 11/30/24 08:00 12/03/24 13:37 1 TAB Ondansetron HCl 4 mg Q4HP PRN IV 11/30/24 08:00 12/03/24 09:18 4 MG Acetaminophen 650 mg Q6HP PRN PO 11/30/24 08:00 12/03/24 11:46 650 MG Morphine Sulfate 2 mg Q4HPRN PRN IV 11/30/24 08:00 12/03/24 03:24 2 MG Nicotine 1 patch DAILY TD 11/30/24 10:00 Phenazopyridine HCl 100 mg Q8HR PO 11/30/24 22:00 12/03/24 13:38 100 MG Enoxaparin Sodium 40 mg DAILY SC 12/02/24 10:00 12/02/24 15:37 40 MG Ergocalciferol 50,000 unit Q7D PO 12/01/24 13:45 12/01/24 16:25 50,000 UNIT Metoclopramide HCl 5 mg Q8HR IV 12/02/24 14:00 12/03/24 13:38 5 MG Ferrous Sulfate 325 mg DAILY PO 12/04/24 10:00 Lactulose 30 ml BID PRN PO 12/03/24 13:45 Levofloxacin 750 mg DAILY PO 12/03/24 13:49 12/03/24 14:15 750 MG Examination Pt is lying on bed General Appearance: Alert, Oriented X3, Cooperative, Mild distress HEENT: Atraumatic, Mucous membranes moist/pink Respiratory: Clear to auscultation, Normal air movement, No added sounds Cardiovascular: Regular rate, Normal S1, Normal S2, No murmurs Abdominal/ : Suprapubic and flank tenderness present but improved, Active bowel sounds, Soft, no distention, Extremities: No edema, Normal pulses, No tenderness/swelling Skin: No Significant rash, except past surgical scars Neuro: Normal speech, sensorimotor deficits none Psych/Mental Status: Mental status NL, Mood NL laboratory and microbiology Laboratory Tests 12/03/24 05:39 Test 12/03/24 05:39 Range/Units Serum Glucose 95 74-106 mg/dL Microbiology Date/Time Source Procedure Growth Status 12/02/24 08:50 Voided Urine Urine Culture - Preliminary Resulted 12/02/24 06:47 Blood Blood Culture - Preliminary NO GROWTH AFTER 24 HOURS OF INCUBATION. Resulted Problem List/Assessment/Plan Problem List/Assessment/Plan # ? Sepsis likely due to UTI # ? Acute Pyelonephritis # Acute complicated UTI / cystitis # Left Nephro-ureteral lithiasis # Mild left hydronephrosis probably secondary to above - Evident on UA - CT abdomen pelvis showed mild left hydronephrosis secondary to a partially obstructing proximal ureteral calculus - KUB showed nonobstructive bowel gas pattern. Renal stones better visualized on prior CT. - postoperative day 1 S/P ESWL, Patient is stable post procedure. - IVF 100ml/hr. Stopped Rocephin. Patient feels nausea and chills with Rocephin, so we started her on Levaquin 750. - Urinary culture pending results. Blood culture shows no growth after 24 hours of incubation. - antiemetics Zofran, as needed - low-salt diet # Morbid obesity with BMI 49.7 kg per m2 - counseled regarding healthy lifestyle modifications including diet and exercise - dietary consult # Microcytic hypochromic Anemia -Iron profile sent. -Ferrous sulfate PO # leiomyomatous uterus - evident on CT - Outpatient follow-up OBGYN # Constipation-resolving - lactulose 30 mL PRN. - Dulcolax started. # Vitamin B12 deficiency - repleting with 1000mcg IM # vitamin-D deficiency [place] [address] units once weekly # mild transaminitis - monitoring lab # Tobacco abuse disorder/dependence - counseled regarding cessation for more than 17 minutes - willing to quit, provided resources - offered nicotine patch # Marijuana abuse disorder - counseled regarding cessation for more than 17 minutes GI prophylaxis: Not indicated DVT prophylaxis: Lovenox 40 mg sq Plan discussed with: Patient (RN), Other Date of Service: Dec 03, 2024 Billing Provider: MARTINA PARIKH MD Common Visit Codes: [id number] INP/OBS CARE(HIGH) SHARMILA MARCUM Dec 03, 2024 15:12 MARTINA PARIKH MD Dec 03, 2024 21:48
[2024-12-04 05:00] VITALS: BP 132/79; PULSE 78; RESP 19; TEMP 98.3; O2SAT 98
[2024-12-04 05:29] LABS: Hematocrit 27.6 % (36.0-46.0); Hemoglobin 8.3 g/dL (12.2-16.2); Mean Corpuscular Hemoglobin 20.7 pg (28.0-32.0); Mean Corpuscular Volume 69.0 fL (80.0-100.0); Nucleated Red Blood Cells % 0.1 %
[2024-12-04 05:45] LABS: Alanine Aminotransferase 10 U/L (7-40); Albumin 3.4 g/dL (3.2-4.8); Alkaline Phosphatase 55 U/L (46-116); Anion Gap 7 (5-15); BUN/Creatinine Ratio 9.8 (10.0-20.0); Carbon Dioxide 27 mmol/L (20-31); Glucose 89 mg/dL (74-106); Potassium 3.6 mmol/L (3.5-5.1); Sodium 141 mmol/L (136-145); Total Protein 5.9 g/dL (5.7-8.2)
[2024-12-04 05:46] LABS: Bilirubin, Total 0.8 mg/dL (0.2-1.0)
[2024-12-04 06:06] LABS: Blood Urea Nitrogen 8 mg/dL (9-23); Calcium 8.4 mg/dL (8.7-10.4); Chloride 107 mmol/L (98-107)
[2024-12-04 08:00] VITALS: RESP 8; O2SAT 98
[2024-12-04 08:37] VITALS: BP 132/76; PULSE 75; RESP 20; TEMP 98.6; O2SAT 98
--- NOTE | 2024-12-04 09:55 | DVHDSRES ---
Discharge Summary Date of Admission Resident Creating Document: SHARMILA MARCUM RESIDENT Nov 30, 2024 at 07:51 Date of Discharge: Dec 04, 2024 Admitting Diagnosis # ? Sepsis likely due to UTI # ? Acute Pyelonephritis Labs/Diagnostic Data: Laboratory Results Test 12/04/24 05:05 12/03/24 05:39 12/02/24 08:50 12/02/24 05:48 White Blood Count 6.2 10^3/uL (4.4-10.8) Red Blood Count 4.00 10^6/uL (4.0-5.20) Hemoglobin 8.3 g/dL (12.2-16.2) Hematocrit 27.6 % (36.0-46.0) Mean Corpuscular Volume 69.0 fL (80.0-100.0) Mean Corpuscular Hemoglobin 20.7 pg (28.0-32.0) Mean Corpuscular Hemoglobin Concent 30.0 g/dL (32.0-36.0) Red Cell Distribution Width 19.3 % (11.8-14.3) Platelet Count 169 10^3/uL (140-450) Mean Platelet Volume 8.3 fL (6.9-10.8) Neutrophils (%) (Auto) 79.9 % (37.0-80.0) Lymphocytes (%) (Auto) 7.8 % (10.0-50.0) Monocytes (%) (Auto) 11.5 % (0.0-12.0) Eosinophils (%) (Auto) 0.1 % (0.0-7.0) Basophils (%) (Auto) 0.7 % (0.0-2.0) Neutrophils # (Auto) 5.0 10 ^3/uL (1.6-8.6) Lymphocytes # (Auto) 0.5 10 ^3/uL (0.4-5.4) Monocytes # (Auto) 0.7 10 ^3/uL (0-1.3) Eosinophils # (Auto) 0 10 ^3/uL (0-0.8) Basophils # (Auto) 0 10 ^3/uL (0-0.2) Nucleated Red Blood Cells 0.1 % Sodium Level 141 mmol/L (136-145) Potassium Level 3.6 mmol/L (3.5-5.1) Chloride Level 107 mmol/L (98-107) Carbon Dioxide Level 27 mmol/L (20-31) Anion Gap 7 (5-15) Blood Urea Nitrogen 8 mg/dL (9-23) Creatinine 0.82 mg/dL (0.550-1.02) Glomerular Filtration Rate Calc 89 mL/min (>90) BUN/Creatinine Ratio 9.8 (10.0-20.0) Serum Glucose 89 mg/dL (74-106) Calcium Level 8.4 mg/dL (8.7-10.4) Total Bilirubin 0.8 mg/dL (0.2-1.0) Aspartate Amino Transferase (AST) 17 U/L (13-40) Alanine Aminotransferase (ALT) 10 U/L (7-40) Alkaline Phosphatase 55 U/L (46-116) Total Protein 5.9 g/dL (5.7-8.2) Albumin 3.4 g/dL (3.2-4.8) Lactic Acid Level 1.1 mmol/L (0.4-2.0) Magnesium Level 1.7 mg/dL (1.6-2.6) Urine Opiates Screen Pos (NEGATIVE) Urine Fentanyl Screen Neg (NEGATIVE) Urine Barbiturates Screen Neg (NEGATIVE) Urine Phencyclidine Screen Neg (NEGATIVE) Urine Amphetamines Screen Neg (NEGATIVE) Urine Benzodiazepines Screen Neg (NEGATIVE) Urine Cocaine Screen Neg (NEGATIVE) Urine Cannabinoids Screen Pos (NEGATIVE) Differential Total Cells Counted 100.0 (100) Neutrophils % (Manual) 88 (37.0-80.0) Band Neutrophils % (Manual) 0 Lymphocytes % (Manual) 5 (10.0-50.0) Monocytes % (Manual) 7 (0-12) Eosinophils % (Manual) 0 (0-7) Basophils % (Manual) 0 (0.0-2.0) Metamyelocytes % (manual) 0 Myelocytes % (Manual) 0 Promyelocytes % (Manual) 0 Blast Cells % (Manual) 0 Reactive Lymphocytes 0 Platelet Estimate Adequate Hypochromasia (manual) Marked Microcytosis Marked Iron Level 16 ug/dL (50-170) Total Iron Binding Capacity 364 ug/dL (250-425) Percent Iron Saturation 4.4 % (15-50) Test 12/01/24 11:32 12/01/24 05:56 11/30/24 06:00 11/30/24 01:23 Prothrombin Time 11.3 sec (9.3-11.8) Prothrombin Time INR 1.07 (0.9-1.15) Activated Partial Thromboplast Time 27.6 SEC (24.5-34.5) Hemoglobin A1c 4.9 % A1C (<5.7) Vitamin B12 Level 249 pg/mL (211-911) Vitamin D 25-Hydroxy 17.3 ng/mL (30.0-100) Thyroid Stimulating Hormone (TSH) 0.70 uIU/mL (0.55-4.78) Plasma/Serum Blood Alcohol < 3.0 mg/dL (<10) Urine Color Yellow (Yellow) Urine Clarity Cloudy (Clear) Urine pH 5.5 (5.0-9.0) Urine Specific [place] 1.022 (1.001-1.035) Urine Protein Trace (Negative) Urine Ketones Negative (Negative) Urine Blood 2+ /uL (Negative) Urine Nitrite 2+ (Negative) Urine Bilirubin Negative (Negative) Urine Urobilinogen Normal mg/dL (Negative) Urine Leukocyte Esterase 1+ /uL (Negative) Urine RBC 62 /hpf (0 - 4) Urine Microscopic WBC 23 /HPF (0-5) Urine Squamous Epithelial Cells Few /hpf (<5) Urine Bacteria Few /hpf (None Seen) Urine Mucus Few (None Seen) Urine Glucose Normal mg/dL (Normal) Urine Test Negative (Negative) Large Platelets Few Other Laboratory Tests 12/04/24 05:05 Brief Hx & Hospital Course: The patient shoulder joints 48-year-old female with a history of morbid obesity presented with signs concerning for urosepsis. Workup reveals pyelonephritis likely due to UTI. CT imaging of the abdomen and pelvis showed left hydronephrosis secondary to partially obstructing proximal ureteral calculus, suggestive of obstructive uropathy. Initial management included empiric treatment with IV Rocephin however once imaging and clinical suspicion suggested obstructive pyelonephritis antibiotics were changed to Levaquin because of the patient's reaction to ceftriaxone. Urology was consulted and the patient underwent a ESWL. Blood cultures remained negative at 24 hours. Microcytic hypochromic anemia likely iron deficiency iron for consent and patient started on oral ferrous sulfate. For constipation which begun to resolve with initiation of lactulose. Vitamin B12 and vitamin-D deficiency was treated. For leiomyoma uterus uterus patient was advised to follow up [facility] outpatient. Dietary counseling was done because of her high BMI. Education on fiber intake provided to address constipation and support obesity management. The patient's condition improved with the intervention she remained hemodynamically stable tolerated oral intake was able to ambulate. Discharge planning was discussed with the patient and her family, who agreed to outpatient follow-up. The patient was discharged in stable condition with prescriptions and follow-up plans in place. Operations or Procedures Examination: XY KUB ABDOMEN SINGLE VIEW IMPRESSION: Nonobstructive bowel gas pattern. Renal stones better visualized on prior CT. Moderate stool burden. ------- Exam: CT CT AB PEL WO CON-NO ORAL OR IV IMPRESSION: 1. Mild left hydronephrosis secondary to a partially obstructing proximal ureteral calculus. 2. Probable leiomyomatous uterus. Radiation optimization: All CT scans at this facility use at least one of these dose optimization techniques: automated exposure control mA and/or kV adjustment per patient size (includes targeted exams where dose is matched to clinical indication) or iterative reconstruction. -------- OPERATIVE REPORT Pre-op. Diagnosis: left proximal ureteral calculus 6 mm Post-op. Diagnosis: Same as pre-op diagnosis Operation: Extracorporeal Shockwave Lithotripsy cystoscopy with left retrograde pyelogram Anesthesia: General Indications: Patient was found to have symptomatic Urolithiasis. Patient is here to undergo ESWL therapy. Informed Consent: The procedure was explained to the patient. It's risks include but not limited to infection, bleeding, and damage to the kidney. Patient fully understood and signed the consent. Other options such as watchful waiting, Ureteroscopy, Percutaneous surgery and open surgery were also discussed. Details of Procedure: Under satisfactory anesthesia, the patient was positioned on the lithotripsy table in the lithotomy position. Area of the genitalia was prepped and draped in usual sterile manner. Twenty-one [place]ian rigid cystoscope was used to inspect the urethra in the bladder. The left ureteric orifice was cannulated with six [place]ian open-ended catheter which was advanced to the point of the stone in the proximal ureter. The stone was located right at the bifurcation of the ureters of the duplicated system. The catheter was maintained in position and the cystoscope was removed. Tomlinson catheter was inserted. Patient was then repositioned on the lithotripsy table. Using fluoroscopy the stone was localized. Starting at low energy levels, shockwave treatment was commenced. The energy level was gradually increased and stone was fragmented. Once the treatment was completed, patient was then taken off the lithotripsy table and sent to recovery room in stable condition. Specimens: None Complications: None Findings: Stone Laterality: Left Stone Location: proximal ureteral 6 mm stone Shocks Delivered: 2400 [employer] settin Fragmentation Quality: Well ------- Condition at Discharge: Stable Final Diagnosis/Problems List # ? Sepsis likely due to UTI # ? Acute Pyelonephritis # Acute complicated UTI / cystitis # Left Nephro-ureteral lithiasis # Mild left hydronephrosis probably secondary to above # Morbid obesity with BMI 49.7 kg per m2 # Microcytic hypochromic Anemia # leiomyomatous uterus # Constipation-resolving # Vitamin B12 deficiency # vitamin-D deficiency # mild transaminitis # Tobacco abuse disorder/dependence # Marijuana abuse disorder Discharge Disposition: Home Discharge Instruct/Medications Diet: Consistent carbohydrate, Cardiac 2g Na,low cholest Activity: No Restrictions, As Tolerated Scheduled Ergocalciferol (Vitamin D 23668 Unit), 50,000 UNIT PO Q7D Ferrous Sulfate (Ferrous Sulfate), 325 MG PO TUTHSA Levofloxacin Hemihydrate (Levaquin 500 Mg), 750 MG PO DAILY Tamsulosin Hcl (Flomax), 0.4 MG PO QPM Scheduled PRN Ibuprofen (Ibuprofen), 600 MG PO BIDPRN PRN Lactulose (Lactulose), 30 ML PO DAILYPRN PRN Ondansetron Odt 4MG Tab (Zofran Po), 4 MG PO BIDPRN PRN Discharge Statement: "Patient was advised to return to the ER or call 911 if any headaches, dizziness, shortness of breath, chest pain, abdominal pain, bleeding, fevers, or worsening of medical condition. Patient was counseled about treatment plan, medications, possible side effects, patientverbalized understanding. All questions were answered to the best of my ability. This discharge took greater then 30 minutes in planning, reviewing documentation, counseling the patient, and discussing with other team members." ASSESSMENT ASSESSMENT Assessment Date of Service: Dec 04, 2024 Billing Provider: MARTINA PARIKH MD Common Visit Codes: 71046-WWV/OBS DISCH DAY >30min TRIXIE,SHARMILA RESIDENT Dec 04, 2024 09:55 MARTINA PARIKH MD Dec 09, 2024 08:18
[2024-12-04] MEDS ORDERED: TAMS-35 PO (09:57)
[2024-12-04] MEDS ORDERED: LEVO500T91 PO (09:57)
[2024-12-04] MEDS ORDERED: FER325T PO (09:57)
[2024-12-04] MEDS ORDERED: LACT10SO3 PO (09:57)
[2024-12-04] MEDS ORDERED: ERGO1CAP23 PO (09:57)
[2024-12-04] MEDS ORDERED: ZOFR4T PO (09:57)
[2024-12-04] MEDS: FERROUS SULFATE 325mg EC TAB PO SCH (10:10)
[2024-12-04] MEDS ORDERED: IBUP-1454 PO (10:22)
[2024-12-04 10:28] VITALS: TEMP 37
== END 2024-12-04 10:45 | disposition home or self-care (01) | DRG 710 ==
LOC: ER 00:45 → OVERFLOW 07:51 → EAST 07:55
PROVIDERS: ADMIT Internal Medicine; ATTEND Emergency Medicine
PROC: BT1F1ZZ Fluoroscopy of Left Kidney, Ureter and Bladder using Low Osmolar Contrast (ICD-10-PCS; 2024-12-02)
PROC: 0TC78ZZ Extirpation of Matter from Left Ureter, Via Natural or Artificial Opening Endoscopic (ICD-10-PCS; principal; 2024-12-02 12:53)
DX: A41.9 Sepsis, unspecified organism (principal); N13.6 Pyonephrosis; F12.10 Cannabis abuse, uncomplicated; D50.9 Iron deficiency anemia, unspecified; D25.9 Leiomyoma of uterus, unspecified; E66.01 Morbid (severe) obesity due to excess calories; J45.909 Unspecified asthma, uncomplicated; Z68.42 Body mass index [BMI] 45.0-49.9, adult; Z71.6 Tobacco abuse counseling; E53.8 Deficiency of other specified B group vitamins; E55.9 Vitamin D deficiency, unspecified; F17.210 Nicotine dependence, cigarettes, uncomplicated; K59.00 Constipation, unspecified; R74.01 Elevation of levels of liver transaminase levels; F17.209 Nicotine dependence, unspecified, with unspecified nicotine-induced disorders; Z91.041 Radiographic dye allergy status
CPT/HCPCS: 36415; 74018; 74176; 80048; 80053; 80307; 80320; 81001; 81025; 82306; 82607; 83036; 83540; 83550; 83605; 83735; 84443; 85007; 85025; 85027; 85610; 85730; 87040; 87086; 96361; 96374; G0378; J1885; J2250; J2405; J2470; J2704